=== PATIENT | female | born 1990 | race Caucasian/White ===

== ENCOUNTER 2021-11-08 04:18 | Emergency (ER) | payer BC, SELFPAY ==
--- NOTE | ~2021-11-08 | XR_ITS ---
XR foot LT 2V, XR ankle LT 2V 11/08/2021 04:59 (accession [id number]), 11/08/2021 05:00 (accession [id number]) Indication: Left foot and ankle pain and swelling Procedure: 2 views left foot and 2 views left ankle Comparison: No prior studies for comparison. Findings: There is a mildly displaced proximal fifth metatarsal fracture. Lisfranc joint intact. Mild soft tissue swelling laterally. There is a distal fibular avulsion fracture. There is a possible non displaced medial malleolar fracture. Impression: 1: Mildly displaced proximal fifth metatarsal fracture with adjacent soft tissue swelling. 2: Nondisplaced avulsion fracture distal aspect of the fibula. 3: Possible nondisplaced medial malleolar fracture, obliquely oriented. Reviewed, dictated and finalized at location A. Impression: 1: Mildly displaced proximal fifth metatarsal fracture with adjacent soft tissu e swelling. 2: Nondisplaced avulsion fracture distal aspect of the fibula. 3: Possible nondisplaced medial malleolar fracture, obliquely oriented. Impression: 1: Mildly displaced proximal fifth metatarsal fracture with adjacent soft tissu e swelling. 2: Nondisplaced avulsion fracture distal aspect of the fibula. 3: Possible nondisplaced medial malleolar fracture, obliquely oriented.
[2021-11-08 04:23] VITALS: BP 152/100; PULSE 84; RESP 18; TEMP 36.8; O2SAT 98
--- NOTE | 2021-11-08 04:57 | ED.LOWEXIN ---
HPI - Extremity Injury (Lower) General Chief Complaint: Extremity Injury, Lower Stated Complaint: R foot injury Source: patient Mode of arrival: ambulatory Limitations: no limitations History of Present Illness HPI Narrative: this is a 31-year-old female that presents after she was at home going to her son's bedroom and missed a step causing her to injure the lateral aspect of her left foot, patient did take some ibuprofen prior to arrival to the ER but is continued to have swelling and tenderness with movement and with weight-bearing. There was strong brisk pedal pulse on the left has good range of motion although tender with no numbness or tingling. complaint: foot injury Onset (ago): hour(s) Injury: Left: foot ( swollen and tender) Type of Injury: inversion Place: home Severity: moderate Severity scale (1-10): 4 Relieving factors: NSAID Exacerbating factors: weight bearing, movement and palpation Related Data Home Medications Medication Instructions Recorded Confirmed No Home Medications 11/08/21 11/08/21 Allergies Allergy/AdvReac Type Severity Reaction Status Date / Time codeine Allergy Unknown Verified 11/08/21 04:23 Review of Systems Review of Systems: All systems reviewed & are unremarkable except as noted in HPI and below PMFSH Past Medical History Medical History Patient denies medical problems Exam Const: General: healthy appearing Nutritional Appearance: well nourished Orientation/consciousness: patient oriented x3 Limitations: no limitations HENMT: Head: normal to inspection Eyes: Conjunctivae: conjunctivae normal Pupils: Equal, round and reactive pupils present EOM: EOMs intact bilaterally Neck: Neck: normal visual inspection, no lymphadenopathy and no meningeal signs Chest: Chest palpation & inspection: normal inspection of the chest Resp: Effort & Inspection: normal respiratory effort Auscultation: clear to auscultation bilaterally Cardio: Rate: regular rate Rhythm: regular rhythm GI: GI Palp: Yes Soft to palpation Auscultation: normal bowel sounds Skin: General skin exam: normal color Rashes: no rashes Neuro: General: patient oriented x3, moves all extremities, no meningeal signs and no focal motor deficits Extrem: Other: tenderness with swelling lateral aspect of her left foot Psych: Mental Status: mental status grossly normal Course Course Emergency Course: patient declined any pain medication, patient did take some ibuprofen prior to arrival, had x-rays performed and reviewed with patient which shows Nondisplaced fracture of the 5th metatarsal. Vital Signs Vital signs: Vital Signs Temperature 36.8 C 11/08/21 04:23 Pulse Rate 84 11/08/21 04:23 Respiratory Rate 18 11/08/21 04:23 Blood Pressure 152/100 H 11/08/21 04:23 Pulse Oximetry 98 11/08/21 04:23 Oxygen Delivery Room Air 11/08/21 04:23 Temperature 36.8 C 11/08/21 04:23 Pulse Rate 84 11/08/21 04:23 Respiratory Rate 18 11/08/21 04:23 Blood Pressure 152/100 H 11/08/21 04:23 Pulse Oximetry 98 11/08/21 04:23 Oxygen Delivery Room Air 11/08/21 04:23 Critical Care Time Critical Care Time Critical Care Time: No Discharge Plan Discharge Clinical Impression: Foot fracture, left Qualifiers: Encounter type: initial encounter Fracture type: closed Qualified Code(s): S92.902A - Unspecified fracture of left foot, initial encounter for closed fracture Patient Disposition: Home, Self-Care Condition: Stable Instructions: Antibiotic Form, Foot Fracture in Adults (ED) Additional Instructions: can take Tylenol or Motrin and follow up with primary care physician within the next 3 to 4 days for further evaluation and treatment. Prescriptions: No Action No Home Medications Follow-up/Referrals: Kevin Downing MD [Primary Care Provider] - Time of Disposition: 05:07
[2021-11-08 05:13] VITALS: BP 144/90; PULSE 78; RESP 18; TEMP 36.6; O2SAT 99
== END 2021-11-08 05:17 | disposition home or self-care (01) ==
PROVIDERS: Emergency Provider Emergency Medicine; PCP Internal Medicine
DX: S92.902A Unspecified fracture of left foot, initial encounter for closed fracture (principal)
CPT/HCPCS: 73600; 73620; 99284; L2112

== ENCOUNTER 2021-12-06 09:29 | Outpatient (CLI) | payer BC, SELFPAY ==
--- NOTE | ~2021-12-06 | XR_ITS ---
XR ankle LT min 3V DATE: 12/06/2021 09:51 INDICATION: Fracture follow-up TECHNIQUE: 4 views COMPARISON: 11/08/2021 left ankle FINDINGS: There is no significant change in position or alignment at the subtle small fracture of the inferior tip of the lateral malleolus. The fracture line is minimally evident. No other fracture or dislocation of the ankle or disruption of the ankle mortise is detected. IMPRESSION: Healing small fracture at inferior tip of lateral malleolus Reviewed, dictated and finalized at location B.
--- NOTE | ~2021-12-06 | XR_ITS ---
XR foot LT min 3V DATE: 12/06/2021 09:52 INDICATION: Fifth metatarsal fracture follow up TECHNIQUE: 4 views COMPARISON: 11/08/2021 left foot FINDINGS: No interval change in position or alignment at the linear oblique fracture through the prox imal shaft of the fifth metatarsal bone. Minimal if any healing new bone formation is identified. The re is no significant change in position or alignment Mild hallux valgus deformity. IMPRESSION: No significant change in position or alignment at the virtually nondisplaced linear obliq ue fracture of proximal fifth metatarsal shaft Reviewed, dictated and finalized at location B. IMPRESSION: No significant change in position or alignment at the virtually non displaced linear oblique fracture of proximal fifth metatarsal shaft
== END 2021-12-06 09:30 | disposition home or self-care (01) ==
LOC: CHSIMG 09:32
PROVIDERS: PCP Internal Medicine; Visit Provider Internal Medicine
DX: S92.352D Displaced fracture of fifth metatarsal bone, left foot, subsequent encounter for fracture with routine healing (principal); S82.62XD Displaced fracture of lateral malleolus of left fibula, subsequent encounter for closed fracture with routine healing
CPT/HCPCS: 73610; 73630

== ENCOUNTER 2022-01-08 11:50 | Outpatient (CLI) | payer BC, SELFPAY ==
--- NOTE | ~2022-01-08 | XR_ITS ---
EXAM: XR foot LT min 3V DATE: 01/08/2022 12:20 HISTORY: LEFT 5TH METATARSAL FX F/U . COMPARISON: 11/08/2021, 12/06/2021. FINDINGS: Normal mineralization. Demonstration of the oblique proximal fifth metatarsal fracture, wi th unchanged fracture line hyperemia, and very early callus formation. No acute fracture or dislocati on. No lytic or blastic lesion. Moderate hallux valgus. Prominent os trigonum. No erosion or perioste al change. Soft tissues within normal limits. IMPRESSION: Early healing changes in the proximal fifth left metatarsal fracture. Reviewed, dictated and finalized at location K. IMPRESSION: Early healing changes in the proximal fifth left metatarsal fractur e.
--- NOTE | ~2022-01-08 | XR_ITS ---
XR ankle LT min 3V DATE: 01/08/2022 12:20 INDICATION: Left ankle fracture, fifth metatarsal fracture TECHNIQUE: 4 views COMPARISON: 11/08/2021, 12/06/2021 left ankle FINDINGS: Virtually no residual sign of medial or lateral malleolar fractures. The ankle mortise is i ntact. Healing proximal fifth metatarsal shaft fracture. IMPRESSION: Healing fifth metatarsal shaft fracture Reviewed, dictated and finalized at location B.
== END 2022-01-08 11:51 | disposition home or self-care (01) ==
LOC: CHSIMG 11:52
PROVIDERS: PCP Internal Medicine; Visit Provider Internal Medicine
DX: S92.352D Displaced fracture of fifth metatarsal bone, left foot, subsequent encounter for fracture with routine healing (principal)
CPT/HCPCS: 73610; 73630

== ENCOUNTER 2022-09-18 08:31 | Outpatient (CLI) | payer BC, SELFPAY ==
--- NOTE | ~2022-09-18 | US_ITS ---
US right upper quadrant INDICATION: Right upper quadrant pain. Dyspepsia. PROCEDURE: Realtime right upper abdominal ultrasound. COMPARISON: No prior studies for comparison. FINDINGS: The pancreas is normal without focal mass or pancreatic ductal dilation. Liver echotexture is normal without focal mass or intrahepatic biliary dilatation. There is normal directional flow i n the portal vein. The gallbladder is normal without stones, gallbladder wall thickening or pericholecystic fluid. Comm on bile duct measures 2 mm. No sonographic Rose's sign. IMPRESSION: 1: Normal limited abdominal ultrasound. Reviewed, dictated and finalized at location L.
== END 2022-09-18 08:32 | disposition home or self-care (01) ==
PROVIDERS: PCP Internal Medicine; Visit Provider Internal Medicine
DX: R13.10 Dysphagia, unspecified (principal)
CPT/HCPCS: 76705

== ENCOUNTER 2022-11-13 17:40 | Emergency (ER) | payer BC, SELFPAY ==
[2022-11-13 17:45] VITALS: BP 136/92; PULSE 64; RESP 16; TEMP 36.6; O2SAT 100
--- NOTE | 2022-11-13 17:46 | ED.URI ---
HPI - URI/Sore Throat General Chief Complaint: Upper Respiratory Infection Stated Complaint: SORE THROAT/CONGESTION/STREP EXPOSURE Time Seen by Provider: 11/13/22 17:50 Source: patient, RN notes reviewed and old records reviewed Mode of arrival: ambulatory Limitations: no limitations History of Present Illness HPI Narrative: 32-year-old female presents to the [facility] with complaints of a sore throat, congestion and states that her was positive for strep today. Pain with swallowing but maintaining own secretions. No treatment prior to arrival. States is going on 2-3 days Related Data Home Medications Medication Instructions Recorded Confirmed escitalopram oxalate 5 mg tablet 5 mg PO DAILY 10/07/22 11/13/22 (Lexapro) ibuprofen 400 mg tablet 400 mg PO Q6H 10/07/22 11/13/22 Allergies Allergy/AdvReac Type Severity Reaction Status Date / Time codeine Allergy Chest Pain Verified 11/13/22 17:48 Review of Systems Review of Systems: All systems reviewed & are unremarkable except as noted in HPI and below Constitutional: Constitutional: Reports no additional constitutional complaints Eyes: Eyes: Reports no additional eye complaints ENT: Reports as per HPI, Reports nasal congestion, Reports nasal discharge and Reports sore throat Cardiovascular: Cardiovascular: Reports no additional cardiovascular complaints, Denies chest pain and Denies dyspnea Respiratory: Respiratory: Reports no additional respiratory complaints, Denies chest congestion, Denies cough and Denies dyspnea Gastrointestinal: Gastrointestinal: Reports no additional gastrointestinal complaints, Denies abdominal pain, Denies nausea and Denies vomiting Musculoskeletal: Musculoskeletal: Reports no additional musculoskeletal complaints Integumentary/Breasts: Skin/Breast: Reports system reviewed and no additional complaints, except as docu Neurologic: Reports system reviewed and no additional complaints, except as documented Psychiatric: Psychiatric: Reports no additional psychiatric complaints Allergic/Immunologic: Allergic/Immunologic: Reports no additional allergic/immunologic complaints PMFSH Past Medical History Medical History Abdominal pain Nausea & vomiting Patient denies medical problems Social History Social History Smoking status: Never smoker Alcohol intake: current Substance use: never Substance use type: does not use Living arrangements: with family Spiritual care concerns: No Comments At the time of my signature, I reviewed and agree with the nursing past medical, surgical, social, and family history. There is no relevant family history pertinent to the patient complaint. Exam Const: General: cooperative, healthy appearing, comfortable, no acute distress, well developed, alert and well nourished Nutritional Appearance: well nourished and obese Orientation/consciousness: patient oriented x3 Limitations: no limitations HENMT: Head: normal to inspection Ears: hearing grossly normal bilaterally, external ears normal and TM abnormal bulging on the right and erythematous on the right Face/Nose/Sinus: Normal external nose present, Normal nares present, Normal nasal mucous membranes and turbinates present and normal facial exam Face and sinus: normal facial exam Mouth: Yes Normal oral and palatal mucosa present, Yes lip normal, Yes tongue normal and Yes moist mucous membranes Throat: posterior oropharynx normal, tonsils normal, uvula midline and no uvular edema Eyes: General: appearance normal, both eyes and all related structures Alignment and Position: alignment normal Periorbital: periorbital findings normal Pupils: Equal, round and reactive pupils present EOM: EOMs intact bilaterally Neck: Neck: normal visual inspection, full ROM, no lymphadenopathy and no meningeal signs Chest: Chest palpation & i
== END 2022-11-13 18:11 | disposition home or self-care (01) ==
PROVIDERS: Emergency Provider Nurse Practitioner; PCP Internal Medicine
DX: J02.0 Streptococcal pharyngitis (principal); H66.91 Otitis media, unspecified, right ear; F41.9 Anxiety disorder, unspecified; F32.A Depression, unspecified
CPT/HCPCS: 87880; 99213; G0463

== ENCOUNTER 2022-12-17 00:56 | Day surgery (SDC) | payer BC, SELFPAY ==
[2022-11-05 11:19] VITALS: BMI 46.3
[2022-12-04 13:31] VITALS: BMI 46.3
[2022-12-17 07:17] VITALS: BP 130/93; PULSE 75; RESP 18; TEMP 36.2; O2SAT 99
[2022-12-17] MEDS: LACTATED RINGERS 1,000 ML 150 ML IV CONT (07:30)
--- NOTE | 2022-12-17 08:08 | P.PNAN_ITS ---
Anes - Initial Pre Proc Eval Procedure: Operation Date: 12/17/22 08:30 Proposed Procedures p Esophagogastroduodenoscopy - Ronald Sheridan MD Date/Time: 12/17/22 08:08 Surgeon: Ronald Sheridan MD Pre Op Diagnosis: nausea, vomiting, abdominal pain Patient Data Age: 32 Gender: F Height: 1.63 m Weight: 121.2 kg Last Vital Signs Temp 97.1 F L 12/17/22 07:17 Pulse 75 12/17/22 07:17 Resp 18 12/17/22 07:17 BP 130/93 H 12/17/22 07:17 Pulse Ox 99 12/17/22 07:17 O2 Del Method Room Air 12/17/22 07:17 Allergies Allergy/AdvReac Type Severity Reaction Status Date / Time codeine Allergy Chest Pain Verified 12/17/22 07:17 Home Medications Medication Instructions Recorded Confirmed Type escitalopram oxalate 5 mg tablet 5 mg PO DAILY 10/07/22 11/13/22 History (Lexapro) ibuprofen 400 mg tablet 400 mg PO Q6H 10/07/22 11/13/22 History Patient hx anesthesia problems: none Family hx anesthesia problems: none Results Review: All pre-operative results and documents have been reviewed as part of the pre- operative evaluation. [facility] Past Medical History Medical History Abdominal pain Nausea & vomiting Patient denies medical problems Social History Social History Smoking status: Never smoker Alcohol intake: current Substance use: never Substance use type: does not use Living arrangements: with family Spiritual care concerns: No Anes - Eval Final PreProcedure Day of Procedure 12/17/22 08:08 Patient weight: morbidly obese Heart: regular rate and rhythm Lungs: clear to auscultation Airway: Mallampati scale class II Neurological: alert and oriented Last oral intake: >/= 8 hours ASA classification: III Emergent: no Anesthetic plan: proceed Anesthesia type and monitoring: general GIVS and standard monitoring Results Review: All pre-operative results and documents have been reviewed as part of the pre- operative evaluation. Informed Consent: The patient's anesthetic plan and its attendant risks and benefits were discussed with the patient/family/POA. Questions were solicited and answers provided to the satisfaction of the patient/family/POA.
--- NOTE | 2022-12-17 08:16 | PM.HPGS ---
History of Present Illness History of Present Illness Consent: Risks, benefits, and alternatives have been discussed and questions answered. Patient agrees to proceed with procedure. Chief complaint: nausea, vomiting, abdominal pain Narrative: Antonette Soto is a 32 year old female with nocturnal nausea, lately doing better, had normal ultrasound, never had egd Review of Systems Constitutional: Constitutional: Denies headache(s) and Denies weakness Eyes: Eyes: Denies blurry vision ENT: Reports Normal hearing present, Denies headache(s) and Denies neck pain Cardiovascular: Cardiovascular: Denies chest pain and Denies dyspnea Respiratory: Respiratory: Denies dyspnea Gastrointestinal: Gastrointestinal: Reports no additional gastrointestinal complaints Genitourinary: Genitourinary: Denies dysuria Musculoskeletal: Musculoskeletal: Denies neck pain Integumentary/Breasts: Skin/Breast: Denies dry skin Neurologic: Reports Normal hearing present, Denies headache(s) and Denies weakness Psychiatric: Psychiatric: Denies anxiety Endocrine: Endocrine: Denies change in body appearance Hematologic/Lymphatic: Hematologic/Lymphatic: Denies easy bleeding Allergic/Immunologic: Allergic/Immunologic: Denies urticaria PMFSH Past Medical History Medical History Abdominal pain Nausea & vomiting Patient denies medical problems Social History Social History Smoking status: Never smoker Alcohol intake: current Substance use: never Substance use type: does not use Living arrangements: with family Spiritual care concerns: No Meds Home Medications and Allergies Home Medications Medication Instructions Recorded Confirmed Type escitalopram oxalate 5 mg tablet 5 mg PO DAILY 10/07/22 11/13/22 History (Lexapro) ibuprofen 400 mg tablet 400 mg PO Q6H 10/07/22 11/13/22 History Allergies Allergy/AdvReac Type Severity Reaction Status Date / Time codeine Allergy Chest Pain Verified 12/17/22 07:17 Vital Signs Vital Signs - 24 hr 12/17/22 07:17 Temperature 97.1 F L Pulse Rate 75 Respiratory Rate 18 Blood Pressure 130/93 H Pulse Oximetry 99 Oxygen Delivery Room Air Exam Const: General: comfortable and no acute distress HENMT: Face/Nose/Sinus: Normal nares present Eyes: General: appearance normal, both eyes and all related structures Neck: Neck: no JVD Resp: Auscultation: clear to auscultation bilaterally Cardio: Rate: regular rate Rhythm: regular rhythm GI: Inspection: non-distended GI Palp: Yes Soft to palpation Skin: General skin exam: normal color Neuro: General: gait normal Speech: normal speech Extrem: General: normal to inspection Psych: Mental Status: mental status grossly normal Assessment and Plan Assessment and plan (1) Nausea & vomiting: Code(s): R11.2 - Nausea with vomiting, unspecified Status: Acute Assessment and Plan: egd with bx
[2022-12-17] MEDS: BENZOCAINE (*SP) 60 ML SPRAY CAN (HURRICAINE) 1 SPRAY MUCOUS MEM (08:25)
[2022-12-17 08:34] VITALS: BP 93/43; PULSE 107; RESP 24; O2SAT 99
[2022-12-17 08:44] VITALS: BP 107/90; PULSE 77; RESP 21; O2SAT 98
[2022-12-17 08:54] VITALS: BP 131/87; PULSE 80; RESP 20; O2SAT 100
== END 2022-12-17 09:00 | disposition home or self-care (01) ==
PROVIDERS: PCP Internal Medicine; Visit Provider Internal Medicine Gastroenterology
PROC: 0DJ08ZZ Inspection of Upper Intestinal Tract, Via Natural or Artificial Opening Endoscopic (ICD-10-PCS; CPT 43235; principal; 2022-12-17 08:30)
DX: K20.0 Eosinophilic esophagitis (principal); E66.01 Morbid (severe) obesity due to excess calories; Z68.42 Body mass index [BMI] 45.0-49.9, adult
CPT/HCPCS: 43239; 88305; J2704; J7120

== ENCOUNTER 2023-09-09 17:59 | Emergency (ER) | payer BC, SELFPAY ==
[2023-09-09 18:02] VITALS: BP 156/94; PULSE 120; RESP 19; TEMP 36.6; O2SAT 99
--- NOTE | 2023-09-09 18:04 | ED.NAVMDI ---
HPI - Nausea/Vomiting/Diarrhea General Chief complaint: Nausea/Vomiting/Diarrhea Stated complaint: nausea/diarreah Time Seen by Provider: 09/09/23 18:03 Source: patient Mode of arrival: ambulatory Limitations: no limitations History of Present Illness HPI Narrative: 32-year-old female with a history of recurrent gastroenteritis with a negative EGD and an unremarkable ultrasound presents to the ER with a 12 hour history of -- nausea with multiple episodes of vomiting. She has had around 10 episodes of vomiting since 6:00 a.m.. Vomitus was initially admixed with food and is currently watery -- multiple episodes of loose stools. No abdominal pain. No fever. her girlfriend had similar symptoms. MD elicited complaint: nausea, vomiting and diarrhea Onset (ago): hour(s) ( 12 hours) Description of vomiting: watery Description of diarrhea: watery Associated nausea: Yes Associated abdominal pain: No Exacerbating factors: none Relieving factors: none Related Data Home Medications Medication Instructions Recorded Confirmed escitalopram oxalate 5 mg tablet 5 mg PO DAILY 10/07/22 09/09/23 (Lexapro) ibuprofen 400 mg tablet 400 mg PO Q6H 10/07/22 09/09/23 Allergies Allergy/AdvReac Type Severity Reaction Status Date / Time codeine Allergy Chest Pain Verified 12/17/22 07:17 Review of Systems Review of Systems: All systems reviewed & are unremarkable except as noted in HPI and below Constitutional: Constitutional: Reports as per HPI and Reports no additional constitutional complaints Eyes: Eyes: Reports as per HPI and Reports no additional eye complaints ENT: Reports system reviewed and no additional complaints, except as documented and Reports as per HPI Cardiovascular: Cardiovascular: Reports as per HPI and Reports no additional cardiovascular complaints Respiratory: Respiratory: Reports as per HPI and Reports no additional respiratory complaints Gastrointestinal: Gastrointestinal: Reports as per HPI, Reports no additional gastrointestinal complaints, Reports diarrhea, Reports nausea and Reports vomiting Genitourinary: Genitourinary: Reports no additional female genitourinary complaints and Reports as per HPI Musculoskeletal: Musculoskeletal: Reports no additional musculoskeletal complaints and Reports as per HPI Integumentary/Breasts: Skin/Breast: Reports system reviewed and no additional complaints, except as docu and Reports as per HPI Neurologic: Reports system reviewed and no additional complaints, except as documented and Reports as per HPI Psychiatric: Psychiatric: Reports no additional psychiatric complaints and Reports as per HPI Endocrine: Endocrine: Reports no additional endocrine complaints and Reports as per HPI Hematologic/Lymphatic: Hematologic/Lymphatic: Reports no additional hematologic/lymphatic complaints and Reports as per HPI Allergic/Immunologic: Allergic/Immunologic: Reports no additional allergic/immunologic complaints and Reports as per HPI [facility] Past Medical History Medical History Abdominal pain Nausea & vomiting Patient denies medical problems Social History Social History Smoking status: Never smoker Alcohol intake: current Substance use: never Substance use type: does not use Living arrangements: with family Spiritual care concerns: No Exam Narrative: Heart rate 120 afebrile Const: General: cooperative and healthy appearing Orientation/consciousness: oriented to person, oriented to place and oriented to time Limitations: no limitations HENMT: Head: normal to inspection, normocephalic and atraumatic Ears: hearing grossly normal bilaterally, external ears normal, TM normal on the right and EAC's normal ( left auditory canal has a lot of wax.) Face/Nose/Sinus: Normal external nose present and Normal nares present Face and sinus: normal faci
[2023-09-09 18:33] LABS: Basophils Absolute Auto 0.01 K/mm3 (0.00-0.10); Basophils Percent Auto 0.1 % (0.0-1.0); Eosinophils Absolute Auto 0.01 K/mm3 (0.02-0.50); Eosinophils Percent Auto 0.1 % (1.0-6.0); Hematocrit 44.2 % (35.0-49.0); Hemoglobin 14.1 g/dL (12.0-15.0); Immature Granulocyte Absolute 0.06 K/mm3 (0.00-0.00); Immature Granulocyte Percent A 0.5 % (0.0-0.0); Lymphocytes Absolute Auto 0.39 K/mm3 (1.10-4.50); Lymphocytes Percent Auto 3.5 % (18.0-42.0); Mean Corpuscular HGB Conc 31.9 g/dL (32-36); Mean Corpuscular Hemoglobin 26.7 pg (27.0-31.0); Mean Corpuscular Volume 83.7 fL (78.0-102.0); Mean Platelet Volume 9.5 fl (9.2-11.8); Monocytes Percent Auto 2.7 % (2.0-11.0); Neutrophils Absolute Auto 10.33 K/mm3 (1.70-7.20); Neutrophils Percent Auto 93.1 % (50.0-70.0); Platelet Count Result 407 K/mm3 (150-420); Red Blood Count 5.28 M/mm3 (4.20-5.40); Red Cell Distribution Width 13.3 % (11.6-14.4); White Blood Count 11.1 K/mm3 (4.8-10.8)
[2023-09-09] MEDS: PROCHLORPERAZINE EDISYLATE 10 MG/2 ML VIAL IV PUSH (18:37)
[2023-09-09] MEDS: LACTATED RINGERS 1,000 ML 999 ML IV CONT (18:37)
[2023-09-09 18:44] LABS: Appearance Urine Sl Cloudy (Clear); Bilirubin Urine 1+ (Negative); Blood Urine Trace-intact (Negative); Color Urine Yellow (Yellow); Glucose Urine UA Negative (Negative); Ketones Urine 3+ (Negative); Leukocyte Esterase Ur Negative LEU/UL (Negative); Nitrate Urine Negative (Negative); Protein Urine Trace (Negative); Specific Grav Ur >= 1.030 (1.010-1.020); Urobilinogen Urine 0.2 mg/dL (0.2-1.0)
[2023-09-09 18:50] LABS: Alanine Aminotransferase 46 U/L (14-59); Albumin Level 3.8 g/dL (3.4-5.0); Alkaline Phosphatase 99 U/L (46-116); Anion Gap 14 mmol/L (4-12); Aspartate Amino Transferase 22 U/L (15-37); Bilirubin,Total 0.9 mg/dL (0.00-1.00); Blood Urea Nitrogen 10 mg/dL (7-18); Calcium 8.9 mg/dL (8.5-10.1); Carbon Dioxide 23 mmol/L (21-32); Chloride 103 mmol/L (98-108); Estimated CRCL calculation 118 ml/min; Estimated Glomerular Filt Rate > 60; Glucose 117 mg/dL (70-99); Osmolality Calculated 290 mOsm/kg (285-295); Potassium 3.9 mmol/L (3.5-5.1); Sodium 140 mmol/L (136-145)
[2023-09-09 18:55] LABS: Add Urine Microscopic? YES; Amorphous Sediment Urine Moderate; RBC Urine 0-2 /hpf (0-2); Squamous Epithelial Cell Urine Moderate /hpf (Few); WBC Urine 0-3 /hpf (0-3)
[2023-09-09 18:56] LABS: Bacteria Urine 2+ /hpf; Mucus Urine Few /lpf
[2023-09-09 18:57] LABS: Lactic Acid Reflex 1.3 mmol/L (0.4-2.0)
--- NOTE | 2023-09-09 19:04 | PC.NURSE ---
pt report to REID bolton. all questions answered.
[2023-09-09 19:08] LABS: Lipase 24 U/L (16-77); SARS-CoV-2 RNA PCR Negative (Negative)
[2023-09-09 19:10] LABS: Influenza A QL RT-PCR Negative (Negative); Influenza B QL RT-PCR Negative (Negative); RSV RNA, RT-PCR Negative (Negative)
[2023-09-09] MEDS: PROCHLORPERAZINE MALEATE 5 MG TABLET PO (20:04)
[2023-09-09 20:11] VITALS: BP 142/83; PULSE 120; RESP 18; TEMP 37.6; O2SAT 99
== END 2023-09-09 20:12 | disposition home or self-care (01) ==
PROVIDERS: Emergency Provider Internal Medicine Critical Care Medicine; PCP Internal Medicine
DX: K52.9 Noninfective gastroenteritis and colitis, unspecified (principal); Z20.822 Contact with and (suspected) exposure to COVID-19
CPT/HCPCS: 36415; 80053; 81001; 83605; 83690; 85025; 87637; 96361; 96374; 99284; A9270; J0780; J7120

== ENCOUNTER 2024-02-02 10:18 | Outpatient (CLI) | payer BC, SELFPAY ==
--- NOTE | ~2024-02-02 | XR_ITS ---
EXAMINATION: XR shoulder LT min 2V DATE: 02/02/2024 10:53 INDICATION: Left shoulder pain. TECHNIQUE: 4 views of left shoulder were obtained. COMPARISON: None. FINDINGS: Alignment is normal. No fracture. Joint spaces are normal. IMPRESSION: 1. Normal shoulder. Reviewed, dictated and finalized at location A. IMPRESSION: 1. Normal shoulder.
--- NOTE | ~2024-02-02 | XR_ITS ---
EXAMINATION: XR_CERV2-3V_CR DATE: 02/02/2024 10:53 INDICATION: Neck pain. Left shoulder pain. TECHNIQUE: 3 views of cervical spine were obtained. COMPARISON: None. FINDINGS: There is 4 degrees dextrocurvature of cervical spine. Vertebral body heights are normal. Th ere is mildly decreased disc height at C5-C6 and C6-C7. There is moderate facet joint osteoarthritis at C7-T1. There is mild central canal stenosis at C5-C6 and C6-C7. No prevertebral soft tissue swelli ng. IMPRESSION: 1. Mild cervical spondylosis. Reviewed, dictated and finalized at location A.
== END 2024-02-02 10:19 | disposition home or self-care (01) ==
LOC: CHSIMG 10:22
PROVIDERS: PCP Internal Medicine; Visit Provider Internal Medicine
DX: M54.2 Cervicalgia (principal); M43.02 Spondylolysis, cervical region
CPT/HCPCS: 72040; 73030

== ENCOUNTER 2024-02-13 13:17 | Emergency (ER) | payer BC, SELFPAY ==
--- NOTE | 2024-02-13 13:21 | ED.URI ---
HPI - URI/Sore Throat General Chief Complaint: Upper Respiratory Infection Stated Complaint: FEVER/CHILLS/SORE THROAT/EARACHE Time Seen by Provider: 02/13/24 13:34 Source: patient, RN notes reviewed and old records reviewed Mode of arrival: ambulatory Limitations: no limitations History of Present Illness HPI Narrative: 33-year-old female presents to the [facility] with complaints fever, chills, sore throat and a right earache since yesterday. Approximately 10 days ago had a Medrol dose pack per Pharmacy record Related Data Home Medications Medication Instructions Recorded Confirmed escitalopram oxalate 5 mg tablet 5 mg PO DAILY 10/07/22 02/13/24 (Lexapro) ibuprofen 400 mg tablet 400 mg PO Q6H 10/07/22 02/13/24 Allergies Allergy/AdvReac Type Severity Reaction Status Date / Time codeine Allergy Chest Pain Verified 02/13/24 13:24 Review of Systems Review of Systems: All systems reviewed & are unremarkable except as noted in HPI and below Constitutional: Constitutional: Reports no additional constitutional complaints Eyes: Eyes: Reports no additional eye complaints ENT: Reports as per HPI, Reports otalgia and Reports sore throat Cardiovascular: Cardiovascular: Reports no additional cardiovascular complaints, Denies chest pain and Denies dyspnea Respiratory: Respiratory: Reports no additional respiratory complaints, Denies chest congestion, Denies cough and Denies dyspnea Gastrointestinal: Gastrointestinal: Reports no additional gastrointestinal complaints, Denies abdominal pain, Denies nausea and Denies vomiting Musculoskeletal: Musculoskeletal: Reports no additional musculoskeletal complaints Integumentary/Breasts: Skin/Breast: Reports system reviewed and no additional complaints, except as docu Neurologic: Reports system reviewed and no additional complaints, except as documented Psychiatric: Psychiatric: Reports no additional psychiatric complaints Allergic/Immunologic: Allergic/Immunologic: Reports no additional allergic/immunologic complaints [facility] Past Medical History Medical History Abdominal pain Nausea & vomiting Patient denies medical problems Social History Social History Smoking status: Never smoker Alcohol intake: current Substance use: never Substance use type: does not use Living arrangements: with family Spiritual care concerns: No Comments At the time of my signature, I reviewed and agree with the nursing past medical, surgical, social, and family history. There is no relevant family history pertinent to the patient complaint. Exam Const: General: cooperative, healthy appearing, comfortable, no acute distress, well developed, alert and well nourished Nutritional Appearance: well nourished Orientation/consciousness: patient oriented x3 Limitations: no limitations HENMT: Head: normal to inspection Ears: hearing grossly normal bilaterally, external ears normal, mastoids normal, no periauricular adenopathy and TM abnormal bulging on the right and with fluid behind the TM on the right; not erythematous Face/Nose/Sinus: Normal external nose present, Normal nares present, Normal nasal mucous membranes and turbinates present, normal facial exam and face symmetric Face and sinus: normal facial exam and face symmetric Mouth: Yes Normal oral and palatal mucosa present, Yes lip normal and Yes tongue normal Throat: uvula midline, posterior oropharynx abnormal cobblestoning and erythema; no edema, postnasal drainage and no uvular edema Eyes: General: appearance normal, both eyes and all related structures Alignment and Position: alignment normal Periorbital: periorbital findings normal Neck: Neck: normal visual inspection, full ROM, no lymphadenopathy and no meningeal signs Chest: Chest palpation & inspection: normal inspection of the chest Resp: Effort & Inspection: no
[2024-02-13 13:30] VITALS: BP 145/88; PULSE 116; RESP 16; TEMP 37.4; O2SAT 99
[2024-02-13 13:45] LABS: EDSTREPNEGPOS1 Positive (Negative)
== END 2024-02-13 13:53 | disposition home or self-care (01) ==
PROVIDERS: Emergency Provider Nurse Practitioner; PCP Internal Medicine
DX: J02.0 Streptococcal pharyngitis (principal)
CPT/HCPCS: 87880; 99213; G0463

== ENCOUNTER 2025-06-02 05:11 | Emergency (ER) | payer BC, SELFPAY ==
--- NOTE | ~2025-06-02 | XR_ITS ---
Examination: XR knee RT 3V Clinical History: pain, inferior/medial, radiating to superiorlatera Comparison: None Technique: 3 views right knee Findings/impression: 1. Joint effusion. 2. No fracture or dislocation. 3. Moderate lateral compartment and mild medial compartment joint space narrowing with mild marginal osteophytes. 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
--- OUTSIDE RECORDS SUMMARY | 2025-06-02 05:13 | XMS_ITS | Clinical Summary ---
Author Organization 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 [address] [address] Carlos Manuel Calderon MD [address] [facility] [address] [place] [address] Health Maintenance Due Date Last Done Comments DTAP/TDAP/TD VACCINES (1 - Tdap) 09/25/2011 HEPATITIS B VACCINES (1 of 3 - 19+ 3-dose series) 09/06 HPV/Cotest (21-29) 2013 CERVICAL CANCER SCREENING 2022 HPV/Cotest (30-65) 2022 PAP SMEAR 2022 INFLUENZA VACCINE (#1) 2025 HPV VACCINES (No Doses Required) Completed Insurance [employer] [facility]
[2025-06-02 05:24] VITALS: BP 152/87; PULSE 99; RESP 18; TEMP 36.4; O2SAT 100
--- NOTE | 2025-06-02 05:28 | ED.EXTPRO ---
HPI - Extremity Problem General Chief complaint: Extremity Problem,Nontraumatic Stated complaint: R knee swollen/pain Time Seen by Provider: 06/02/25 05:27 Source: patient Mode of arrival: ambulatory Limitations: no limitations History of Present Illness HPI Narrative: Patient presents with concern for right knee swelling and pain. Note there is a discrepancy he is chief complaint in triage note list both right and left knee but patient confirms right. She has developed edema but denies any specific trauma or injury that she knows. Her symptoms seem worse with movement in particular her with full flexion at the knee. She notes that she is on feet a lot and also been down and occasionally on her knees. She denies any specific popping or clicking although she will feel a grinding sensation and says overnight she can not seem to get comfortable. Pain is primarily at the inferior and medial aspect the right knee but seems to radiate to the lateral superior aspect of the knee as well. She took 400 mg of ibuprofen at 3:00 a.m. without improvement. She denies any fevers or chills. Says she has had issues with this knee before but it did not seem this bad previously. No previous surgical intervention and has not seen orthopedic surgery or required injections previously. She confirms she has a PCP, Dr Pulido in [place]. Related Data Home Medications ?Medication ?Instructions ?Recorded ?Confirmed ?Last Taken ?Type escitalopram oxalate 5 mg tablet 5 mg PO DAILY 10/07/22 02/13/24 Unknown History (Lexapro) ibuprofen 400 mg tablet 400 mg PO Q6H 10/07/22 02/13/24 Unknown History Allergies Allergy/AdvReac Type Severity Reaction Status Date / Time codeine Allergy Chest Pain Verified 02/13/24 13:24 [facility] Past Medical History Medical History Abdominal pain Nausea & vomiting Patient denies medical problems Social History Social History Smoking status: Never smoker Alcohol intake: current Substance use: never Substance use type: does not use Living arrangements: with family Spiritual care concerns: No Exam Narrative: GENERAL: Well-appearing, well-nourished, and in no acute distress. HEAD: Normocephalic, atraumatic. EYES: Non injected, non icteric ENT: Nares clear, no rhinorrhea or epistaxis. Gross auditory acuity intact. NECK: Supple. No meningismus. CHEST: Speaking in full sentences. No respiratory distress. HEART: Regular rate and rhythm. . ABDOMEN: Soft, nondistended. No rigidity or guarding. Not peritoneal EXTREMITIES: Normal range of motion. No lower extremity edema. Right knee is edematous with effusion. Patient able to perform flexion and extension of the right knee, passive and active. Strength 5/5 bilateral flexion and extension of knees. Patient demonstrates good flexion but notes that at the extremes she experiences pain which limits. Legs are warm and well perfused. No calf tenderness. Calves are grossly symmetric. No laxity on anterior or posterior drawer. No TTP of knee joint. Left patellar is mobile, right patella full movement somewhat limited due to degree of effusion but does not seem to catch. SKIN: Warm, dry, no rash. Skin is intact. No erythema/cellulitis. NEURO: No focal deficits. Alert and oriented. Answering questions. Following commands. Normal speech without aphasia or dysarthria. Sensation intact throughout leg. PSYCH: Normal mood and affect. Course Vital Signs Vital signs: Vital Signs Temperature 97.6 F 06/02/25 05:24 Pulse Rate 99 06/02/25 05:24 Respiratory Rate 18 06/02/25 05:24 Blood Pressure 152/87 H 06/02/25 05:24 Pulse Oximetry 100 06/02/25 05:24 Oxygen Delivery Room Air 06/02/25 05:24 Temperature 97.6 F 06/02/25 05:24 Pulse Rate 99 06/02/25 05:24 Respiratory Rate 18 06/02/25 05:24 Blood Pressure 152/87 H 06/02/25 05:24 Pulse Oximetry 100 06/02/25 05:24 Oxygen Delivery Room Air 06/02/25 05:24 [facility] MDM Narrative Medical decision making narrative: Patient presents right knee pain and swelling. No trauma/injury. In the Emergency department she is afebrile with vital signs notable for hypertension. Acetaminophen ordered. Very low suspicion for septic arthritis given physical exam. Xray as below. IM ketorolac ordered. Patient is stable for discharge. Prescribed [id number] analgesics medications. Advised follow-up with her PCP and also provided referral contact information for Orthopedic surgery. Differential Diagnosis Differential Diagnosis: internal derangement of knee (meniscal tear, ligamentous injury); septic arthritis; fracture; dislocation; patellar pathology Imaging Data Radiologist's impression: Findings/impression: 1. Joint effusion. 2. No fracture or dislocation. 3. Moderate lateral compartment and mild medial compartment joint space narrowing with mild marginal osteophytes. Discharge Plan Discharge Clinical Impression: Effusion of right knee joint, Acute pain of right knee, Osteophyte of right knee Patient Disposition: Home Condition: Stable Instructions: Antibiotic Form, Swollen Knee Joint (ED), Knee Pain (ED) Additional Instructions: Acetaminophen/Tylenol (maximum 4000 mg per day) is safe to take with NSAIDs (ibuprofen/Motrin) for pain relief. Follow-up with your primary care physician, especially if not improving as it may require additional imaging, alternative pain medication, injection/arthrocentesis, etc. The name of an orthopedic surgeon is also listed below; you can call and try to be seen by them in clinic. Return to the emergency department with any new or worsening symptoms Patient Language: Divehi Prescriptions: New acetaminophen 500 mg capsule 1,000 mg PO Q6H PRN (Reason: pain) Qty: 30 0RF ibuprofen 200 mg capsule 600 mg PO Q6H PRN (Reason: pain) Qty: 30 0RF No Action prochlorperazine maleate [Compazine] 5 mg tablet 5 mg PO Q8H PRN (Reason: nausea and vomiting) 1 Days Qty: 10 0RF amoxicillin 875 mg tablet 875 mg PO Q12H Qty: 20 0RF escitalopram oxalate [Lexapro] 5 mg tablet 5 mg PO DAILY ibuprofen 400 mg tablet 400 mg PO Q6H omeprazole 20 mg capsule,delayed release(DR/EC) 20 mg PO .daily Qty: 30 5RF Follow-up/Referrals: Kevin Downing MD [Primary Care Provider, Internal Medicine] Andreas Lazar MD [Physician, Orthopedics] Stand Alone Forms: Work/School Release IP Time of Disposition: 07:10
[2025-06-02] MEDS: ACETAMINOPHEN 500 MG TABLET 1000 MG PO (06:31)
[2025-06-02] MEDS: KETOROLAC 30 MG/ML VIAL (*BKC) IM (07:12)
== END 2025-06-02 07:24 | disposition home or self-care (01) ==
PROVIDERS: Emergency Provider Student in an Organized Health Care Education/Training Program; PCP Internal Medicine
DX: M25.761 Osteophyte, right knee (principal); M25.561 Pain in right knee; M25.461 Effusion, right knee
CPT/HCPCS: 73562; 96372; 99283; A9270; J1885